=== PATIENT | female | born 1965 | race Two or more races ===

== ENCOUNTER 2023-07-30 21:11 | Emergency (ER) | payer BC ==
[~2023-07-30] VITALS: Ht 157.5 cm; Wt 98.9 kg
[2023-07-30] MEDS ORDERED: LOSARTAN POTAS100 MG PO (21:49)
[2023-07-30] MEDS ORDERED: ATORVASTATIN CA10 MG PO (21:49)
[2023-07-30] MEDS ORDERED: GLIPIZIDE ER10 MG PO (21:50)
[2023-07-30 23:42] LABS: CALCIUM 9.2 mg/dL (8.5-10.1); CREATININE SERUM 1.01 mg/dL (0.55-1.02); GFR 56.91; POTASSIUM 3.67 mEq/L (3.5-5.1)
[2023-07-31 00:48] LABS: HEMATOCRIT 37.2 % (36.0-45.00); HEMOGLOBIN 12.1 g/dL (12.0-15.00); MEAN CORPUSCULAR HEMOGLOBIN 28.2 pg (27.00-32.0); MEAN CORPUSCULAR HGB CONC 32.4 g/dl (32.0-36.0); PLATELET COUNT 222 K/uL (150-450); RED BLOOD COUNT 4.28 M/uL (4.00-6.00); RED CELL DISTRIBUTION WIDTH 13.8 % (11.5-14.5)
== END 2023-07-31 01:38 | disposition home or self-care (01) ==
LOC: ER 21:11
PROVIDERS: General Practice
DX: U07.1 COVID-19 (principal); Z88.2 Allergy status to sulfonamides; Z91.040 Latex allergy status; Z88.8 Allergy status to other drugs, medicaments and biological substances